=== PATIENT | male | born 1995 | race Caucasian/White ===

== ENCOUNTER 2016-12-11 12:03 | Emergency (ER) | payer OTHER ==
[~2016-12-11] VITALS: Ht 175.3 cm; Wt 74.8 kg
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
[2016-12-11] MEDS ORDERED: KETOROLAC TROMETHAMINE INJ 30 MG/ML VIAL ONE (12:58)
[2016-12-11] MEDS ORDERED: BACI/NEOM/POLY B OINT PKT 1 UDPKT PACKET ONE (12:59)
[2016-12-11] MEDS ORDERED: TDAP [DIPH/PERTUSSIS/TET] 0.5 ML VIAL IM ONE ×2 (12:59→13:00)
[2016-12-11] MEDS ORDERED: KETOROLAC TROMETHAMINE INJ 60 MG/2 ML VIAL IM ONE (13:00)
[2016-12-11] MEDS ORDERED: BACI/NEOM/POLY B OINT PKT 1 UDPKT PACKET TP ONE (13:00)
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
[2016-12-11 13:42] VITALS: BP 123/80
--- NOTE | 2016-12-11 13:43 | NUR ---
Patient discharged to home in stable condition. Written and verbal after care instructions given. Patient verbalizes understanding of instruction. Given prescription.
== END 2016-12-11 13:43 | disposition home or self-care (01) ==
LOC: ER 12:05
DX: S01.111A Laceration without foreign body of right eyelid and periocular area, initial encounter (principal); S00.83XA Contusion of other part of head, initial encounter; Z88.0 Allergy status to penicillin; Y04.0XXA Assault by unarmed brawl or fight, initial encounter; Y92.89 Other specified places as the place of occurrence of the external cause; Y93.89 Activity, other specified; Y99.8 Other external cause status
CPT/HCPCS: 90715; A4606; A6403; J1885; Z7610

== ENCOUNTER 2016-12-12 11:33 | Emergency (ER) | payer OTHER ==
[~2016-12-12] VITALS: Ht 175.3 cm; Wt 70.8 kg
[2016-12-12 11:41] VITALS: BP 139/77
[2016-12-12] MEDS ORDERED: ONDANSETRON 4 MG TAB.RAPDIS SL ONE (12:30)
[2016-12-12] MEDS ORDERED: HYDROCODONE/APAP 10/325MG 1 EA TABLET PO ONE (12:30)
== END 2016-12-12 13:26 | disposition home or self-care (01) ==
LOC: ER 11:36
DX: S20.212A Contusion of left front wall of thorax, initial encounter (principal); S05.11XA Contusion of eyeball and orbital tissues, right eye, initial encounter; Z88.0 Allergy status to penicillin; Y04.0XXA Assault by unarmed brawl or fight, initial encounter; Y93.89 Activity, other specified; Y92.89 Other specified places as the place of occurrence of the external cause; Y99.9 Unspecified external cause status
CPT/HCPCS: 70486-TC; 71250-TC; A4606; Z7610

== ENCOUNTER 2016-12-14 15:06 | Emergency (ER) | payer OTHER | END 2016-12-14 15:59 | disposition home or self-care (01) | LOC: ER 15:11 | DX: Z53.21 Procedure and treatment not carried out due to patient leaving prior to being seen by health care provider (principal) | CPT/HCPCS: A4606; Z7610 ==

== ENCOUNTER 2016-12-14 20:26 | Emergency (ER) | payer OTHER ==
[~2016-12-14] VITALS: Ht 177.8 cm; Wt 72.6 kg
[2016-12-14 20:37] VITALS: BP 147/93
== END 2016-12-14 20:58 | disposition home or self-care (01) ==
LOC: ER 20:29
DX: S01.111A Laceration without foreign body of right eyelid and periocular area, initial encounter (principal); S00.83XA Contusion of other part of head, initial encounter; S20.212A Contusion of left front wall of thorax, initial encounter; S00.12XA Contusion of left eyelid and periocular area, initial encounter; Y04.0XXA Assault by unarmed brawl or fight, initial encounter; Y92.89 Other specified places as the place of occurrence of the external cause; Y93.89 Activity, other specified; Y99.8 Other external cause status; Z88.0 Allergy status to penicillin
CPT/HCPCS: A4606; Z7610